=== PATIENT | male | born 1985 | race Caucasian/White ===

== ENCOUNTER 2022-06-13 13:48 | Emergency (ER) | payer BC ==
[~2022-06-13] VITALS: Ht 172.7 cm; Wt 136.4 kg
[2022-06-13 14:30] VITALS: TEMP 98.5
[2022-06-13 16:24] VITALS: BP 138/89; PULSE 79
== END 2022-06-13 16:25 | disposition home or self-care (01) ==
LOC: COL.ER 13:48
DX: S61.311A Laceration without foreign body of left index finger with damage to nail, initial encounter (principal); W26.0XXA Contact with knife, initial encounter